=== PATIENT | female | born 1980 | race Caucasian/White ===

== ENCOUNTER 2019-01-31 20:50 | Inpatient (IN) | payer OTHER ==
[~2019-01-31] VITALS: Ht 185.4 cm; Wt 139.7 kg
[~2019-01-31 20:50] MED LIST: LOV40I SUBQ; WARF10TA28 PO; [UNRECOGNIZED DRUG - REMARK] PO
[2019-01-31 21:05] VITALS: BP 124/65
--- NOTE | 2019-01-31 21:07 | NUR ---
TO LOBBY A/W BED AMBULATORY
--- NOTE | 2019-01-31 21:36 | NUR ---
PT TAKEN TO BED 12.
--- NOTE | 2019-01-31 21:45 | NUR ---
38 YO F BIB SELF PRESENTS TO ED C/O 03/24 BURNING LOWER BACK PAIN. PT STATES SHE HAD GASTRIC BYPASS SURGERY ON 01/18/19 AT [facility]. PT STATES SHE HAS HAD INTERMITTENT FEVERS AND IS C/O LOWER BACK PAIN X 2 DAYS WITH INTERMITTENT VOMITING. -- PT AWAKE, ALERT, CALM, COOPERATIVE. ANSWERS QUESTIONS APPROPRIATELY. BEHAVIOR APPROPRIATE. -- SKIN PINK, WARM, DRY. BREATHING EVEN, UNLABORED. PMH-- PULMONARY EMBOLISM, 2011 RX-- ELIQUIS 5 MG BID
--- NOTE | 2019-01-31 21:57 | NUR ---
DR. WU EVALUATING AT BEDSIDE.
[2019-01-31] MEDS ORDERED: NACL 0.9% 1,000 ML IV ONE ×2 (22:02→23:35)
[2019-01-31] MEDS ORDERED: ONDANSETRON 4 MG/2 ML VIAL IVP ONE (22:05)
[2019-01-31] MEDS ORDERED: MORPHINE SULFATE 4 MG/ML SYR IVP ONE (22:05)
[2019-01-31 22:29] LABS: BASOPHILS % (AUTO) 0.2 % (0.0-2.0); EOSINOPHILS # (AUTO) 0.1 K/uL (0-0.4); EOSINOPHILS % (AUTO) 0.7 % (0.0-4.0); HEMATOCRIT 33.2 % (36-48); HEMOGLOBIN 10.8 g/dL (12.0-16.0); LYMPHOCYTES # (AUTO) 1.6 K/uL (2.5-16.5); MEAN CORPUSCULAR HEMOGLOBIN 29 pg (27-31); MEAN CORPUSCULAR HGB CONC 33 g/dL (33-37); MEAN CORPUSCULAR VOLUME 88.7 fL (80-94); MONOCYTES # (AUTO) 1.5 K/uL (0.8-1.0); MONOCYTES % (AUTO) 7.4 % (1.7-9.3); NEUTROPHILS # (AUTO) 17.7 K/uL (1.8-7.7); NEUTROPHILS % (AUTO) 84.2 % (42.2-75.2); PLATELET COUNT (AUTO) 430 K/uL (140-450); RED BLOOD CELL COUNT(AUTO) 3.74 MIL/uL (4.20-5.40); RED CELL DISTRIBUTION WIDTH 14.1 % (11.6-13.7)
[2019-01-31 22:38] LABS: LYMPHOCYTES % (AUTO) 7.5 % (20.5-51.1)
[2019-01-31 22:39] LABS: ANION GAP 19.2 (8-16); CARBON DIOXIDE 22.3 mmol/L (21-32); CREATININE 0.8 mg/dL (0.6-1.3); POTASSIUM 3.5 mmol/L (3.5-5.1)
[2019-01-31 22:45] LABS: ALBUMIN 2.7 g/dL (3.4-5.0); TOTAL BILIRUBIN 0.7 mg/dL (0.0-1.0)
[2019-01-31 23:08] LABS: APPEARANCE,URINE CLEAR (CLEAR); BILIRUBIN,URINE 2+ (NEGATIVE); BLOOD, URINE 2+ (NEGATIVE); COLOR,URINE YELLOW (YELLOW); LEUKOCYTE ESTERASE ,URINE NEGATIVE (NEGATIVE); NITRITE, URINE NEGATIVE (NEGATIVE); UGLUCOSE NEGATIVE (NEGATIVE)
--- NOTE | 2019-01-31 23:08 | NUR ---
PT TAKEN TO CT
--- NOTE | 2019-01-31 23:21 | NUR ---
PT RETURN FROM CT
[2019-01-31 23:27] LABS: WBC,URINE 0-5 /HPF (0-5)
--- NOTE | 2019-02-01 00:33 | NUR ---
Ultrasound at bedside.
--- NOTE | 2019-02-01 01:07 | NUR ---
PT IS RESTING COMFORTABLY IN BED. VSS. SKIN PINK, WARM, DRY. BREATHING EVEN, UNLABORED. DENIES PAIN/DISCOMFORT AT THIS TIME.
[2019-02-01] MEDS ORDERED: APIX5TAB PO (01:53)
[2019-02-01] MEDS ORDERED: ONDANSETRON 4 MG/2 ML VIAL IVP ONE (02:05)
[2019-02-01] MEDS ORDERED: LEVOFLOXACIN 750 MG/D5W PREMIX 150 ML IV ONE (02:05)
[2019-02-01] MEDS ORDERED: metroNIDAZOLE 500 MG/NS PREMIX 100 ML IV ONE (02:05)
[2019-02-01] MEDS ORDERED: MORPHINE SULFATE 4 MG/ML SYR IVP ONE (02:05)
--- NOTE | 2019-02-01 02:05 | NUR ---
PT C/O PAIN COMING BACK. DR. WU MADE AWARE.
--- NOTE | 2019-02-01 03:32 | NUR ---
PT IS RESTING COMFORTABLY IN BED. VSS. SKIN PINK, WARM, DRY. BREATHING EVEN, UNLABORED. DENIES PAIN/DISCOMFORT AT THIS TIME.
[2019-02-01 04:00] VITALS: BP 122/39
--- NOTE | 2019-02-01 04:00 | NUR ---
RECEIVED FROM ER VIA DAMARIS, PT AWAKE, ALERT AND ORIENTED X 4. PT BEDREST, BUT ABLE TO AMBULATE. W/ L AC G 20, PATENT AND INTACT. PT'S POC DISCUSSED. ORIENTED TO UNIT. CALL LIGHTS W/IN REACH.
--- NOTE | 2019-02-01 04:02 | NUR ---
PT TRANSFERED TO FLOOR WITH LEVAQUIN INFUSING.
--- NOTE | 2019-02-01 04:02 | NUR ---
Jaison rubin in [facility] - 02/01/19 at 0421 by [facility] PT TRANSFERED TO FLOOR WITH ZOSYN INFUSING.
--- NOTE | 2019-02-01 04:04 | NUR ---
Patient will be admitted to care of Dr. Fatima. Admited to MS. Will go to room 105A. Belongings list completed. Report to FRANK Rodriguez.
[2019-02-01] MEDS ORDERED: ACETAMINOPHEN 325 MG TAB PO PRN (04:35)
--- NOTE | 2019-02-01 04:45 | NUR ---
CALLED IN FOR ORDERS, CARRIED ORDERS. PT SAID THAT SHE IS ALLERGIC TO PENICILLIN.PT SAID SHE HAD HIVES THAT WAS WHEN SHE WAS [address] NOBLES ORDERED ZOSYN 3.375 IVF MG Q 6. WILL ENDORSE TO NEXT SHIFT IF TO CONTINUE W/ THIS ORDER ZOSYN A PENICILLIN DERIVATIVE.
[2019-02-01] MEDS ORDERED: ONDANSETRON 4 MG/2 ML VIAL IVP PRN (06:00)
[2019-02-01] MEDS: DEXT 5% / NACL 0.45% 1,000 ML IV SCH ×2 (06:45→21:15)
--- NOTE | 2019-02-01 07:30 | NUR ---
RECEIVED ENDORSEMENT FROM REAL ESTATE ASSET MANAGER NURSE. PATIENT IS AAOX4, LIBERIAN SPEAKING. RESPIRATIONS ARE EVEN AND UNLABORED ON ROOM AIR. PATIENT DENIES ANY PAIN AT THIS TIME. LEFT AC 20 G IV INTACT, PATENT, AND INFUSING IVF. PLAN OF CARE WAS REVIEWED WITH PATIENT. PATIENT VERBALIZED UNDERSTANDING. SAFETY MEASURES IN PLACE, CALL LIGHT WITHIN REACH.
[2019-02-01 08:00] VITALS: BP 122/58
--- NOTE | 2019-02-01 08:08 | NUR ---
PATIENT HAS BEEN SCREENED AND CATEGORIZED HIGH NUTRITION RISK. PATIENT WILL BE SEEN WITHIN 1-2 DAYS OF ADMISSION. 02/01/19-02/02/[address]
--- NOTE | 2019-02-01 09:40 | NUR ---
PATIENT IS RESTING IN BED. DENIES ANY PAIN, NO OTHER NEEDS AT THIS TIME.
[2019-02-01 10:18] LABS: ALBUMIN 2.2 g/dL (3.4-5.0); ANION GAP 15.7 (8-16); CARBON DIOXIDE 22.8 mmol/L (21-32); CREATININE 0.6 mg/dL (0.6-1.3); POTASSIUM 3.5 mmol/L (3.5-5.1); TOTAL BILIRUBIN 0.8 mg/dL (0.0-1.0)
--- NOTE | 2019-02-01 11:42 | NUR ---
PATIENT IS RESTING IN BED. FAMILY IS PRESENT AT BEDSIDE. DENIES PAIN AT THIS TIME. NO OTHER NEEDS AT THIS TIME.
--- NOTE | 2019-02-01 12:44 | NUR ---
02/01/19 RD INITIAL ASSESSMENT COMPLETED PLEASE REFER TO NUTRITION ASSESSMENT UNDER CARE ACTIVITY FOR ESTIMATED NUTRITIONAL NEEDS. 1. CONTINUE NPO MEDICALLY NECESSARY 2. RECOMMEND FULL LIQUID DIET WHEN PT IS MEDICALLY STABLE TO RECEIVE NUTRITION 3. RECOMMEND IRON, VITAMIN B 12, VITAMIN D, CALCIUM, AND MVI FOR POST-BARIATRIC BYPASS 4. EDUCATION ON BARIATRIC AND LOW-FAT DIET WERE PROVIDED 5. RD TO FOLLOW-UP 3-5 DAYS, MODERATE RISK SHAGGY ORTIZ RD
--- NOTE | 2019-02-01 13:20 | NUR ---
PATIENT RESTING IN BED. DENIES ANY PAIN AT THIS TIME. NO OTHER NEEDS AT THIS TIME.
--- NOTE | 2019-02-01 13:33 | NUR ---
DC PLANNING Order for transfer to Bariatric center for Bariatric Cholecystectomy Morbid Obesity w Acute Cholecystitis, recommended by surgeon. Spoke w Dr Campbell in nsg station, [facility] Dr Carpenter has not examined pt yet but reviewed case w him & recommended transferring pt. Spoke w pt @ bedside, states had Gastric Bypass @ [facility] [address] Jacky Holbrook @ [facility] ph [phone]. Is agreeable w transfer but would prefer to dc home & f/u outpt if Surgeon says it's ok. States has f/u appt w Dr Holbrook tomorrow morning. Called & Spoke w Don, Front Counter Attendant @ [facility] ph [phone], [facility] would need to get accepting MD first. Called & spoke w Krysten Nicole @ [facility] informed of order & reason for transfer. Krysten placed me on hold discussed w Surgeon & want University Surgeon to examine pt first then he can call & speak w their surgeon if still wants transfer. Can call same#. Addendum: 02/01/19 at 1350 by Monica Hughes CM Called Dr Carpenter's office & left [facility] to call me to discuss transfer. Addendum: 02/01/19 at 1636 by Monica Hughes CM Received call from Dr Carpenter around 1430 & updated that Surgeon @ [facility] will consider transfer only after he examines pt & discuss w him. Did not want ph# states will be here in about an hour & will examine pt & call. Dr Carpenter still not in hospital. Called & spoke bronson Calderon @ [facility], ph [phone], fax [phone],& informed of order. Faxed pt info, states will review & will call nsg station directly & [facility] if transfer auth'd. Informed still waiting for accepting MD. Called & spoke bronson Fajardo @ [facility] & informed CM leaving for the day, left direct # for Dr Carpenter & nsg station. Informed still waiting for Dr Carpenter. Called & updated charge nurse, Beverly, gave ph # for [facility]'s for Dr Carpenter to call.
--- NOTE | 2019-02-01 15:30 | NUR ---
PATIENT RESTING IN BED. DENIES ANY PAIN. NO OTHER NEEDS AT THIS TIME.
[2019-02-01 16:00] VITALS: BP 129/64
--- NOTE | 2019-02-01 16:55 | NUR ---
RECEIVED CALL FROM BARRERA FROM [facility]. INSURANCE WANTS UPDATE ON WHETHER PATIENT WILL BE TRANSFERRED OR NOT. PLEASE CALL .
--- NOTE | 2019-02-01 17:12 | NUR ---
[facility] JOSE DOWELL CALLED TO SEE IF DR BOTELLO HAS EVALUATED THE PATIENT, WILL INFORM DR FIELD TO CALL [facility] WHEN PT IS EVALUATED .
--- NOTE | 2019-02-01 17:32 | NUR ---
ASSISTED PATIENT TO THE BATHROOM. PATIENT ABLE TO AMBULATE WITH A STEADY GAIT. DENIES PAIN. NO OTHER NEEDS AT THIS TIME.
--- NOTE | 2019-02-01 19:08 | NUR ---
SPOKE TO JOSE A FROM [facility]. HIDA SCAN TO BE DONE FIRST THING IN THE MORNING. DR. BOTELLO IS AWARE. PATIENT TO BE NPO AFTER MIDNIGHT AND NO PAIN MEDICATIONS AFTER 0400.
--- NOTE | 2019-02-01 19:20 | NUR ---
RECEIVED FROM AM RN IN BED AWAKE AND ALERT. ABLE TO VERBALIZE NEEDS WELL IN [place]. CARE PLANS FOR THE NIGHT DISCUSSED WITH HER AND CALL LIGHT USE RE-ORIENTED. NO PAIN COMPLAINTS AT THIS TIME. IVF SITE INTACT AND NO INFILTRATION. REMINDED NPO ORDER RT WITH HIDA SCAN PROCEDURE ORDERED. "OK"
--- NOTE | 2019-02-01 19:22 | NUR ---
ENDORSED TO BRANCH SERVICE ASSOCIATE NURSE CHUCK FOR CONTINUITY OF CARE. PATIENT IS STABLE AT THIS TIME.
--- NOTE | 2019-02-01 22:53 | NUR ---
PT. SEEN BY MD BOTELLO AND STATED OK TO GIVE FULL LIQUID AND NPO MIDNIGHT FOR HIDA SCAN TOMORROW. PT. AWARE. PROVIDED WITH WATER REQUESTED. REFUSED JUICE. NO PAIN COMPLAINTS DONE.
--- NOTE | 2019-02-01 23:30 | NUR ---
SLEEPING. NO RESTLESSNESS. CLL LIGHT WITH IN REACH.
[2019-02-01 23:50] VITALS: BP 133/59
[2019-02-02] MEDS: DEXT 5% / NACL 0.45% 1,000 ML IV SCH ×2 (00:59→21:40)
--- NOTE | 2019-02-02 01:09 | NUR ---
NEW IVF BAG ADMINISTERED. PT. AWAKE AND ABLE TO COMMUNICATE WELL WITH ME. NO COMPLAINTS DONE. REMINDED OF NPO M . N . STATUS AGAIN. "OK" IVF SITE INTACT AND NO INFILTRATION.
--- NOTE | 2019-02-02 02:45 | NUR ---
PT. SLEEPING. NO RESTLESSNESS. CALL LIGHT WITH IN REACH.
--- NOTE | 2019-02-02 04:00 | NUR ---
NO COMPLAINTS. SLEEPING WELL THIS SHIFT. IVF INFUSING WELL. CALL LIGHT WITH IN REACH.
[2019-02-02 05:57] LABS: ALBUMIN 2.2 g/dL (3.4-5.0); ANION GAP 13.9 (8-16); CARBON DIOXIDE 25.7 mmol/L (21-32); CREATININE 0.6 mg/dL (0.6-1.3); POTASSIUM 3.6 mmol/L (3.5-5.1); TOTAL BILIRUBIN 0.5 mg/dL (0.0-1.0)
--- NOTE | 2019-02-02 06:39 | NUR ---
PT. AWAKE AND WENT RESTROOM BY HERSELF. INDEPENDENT. ABLE TO AMBULATE WELL. NPO SINCE MIDNIGHT.
[2019-02-02 06:45] LABS: BASOPHILS # (AUTO) 0.1 K/uL (0.00-0.22); BASOPHILS % (AUTO) 0.7 % (0.0-2.0); EOSINOPHILS # (AUTO) 0.4 K/uL (0-0.4); EOSINOPHILS % (AUTO) 2.4 % (0.0-4.0); HEMOGLOBIN 10.3 g/dL (12.0-16.0); LYMPHOCYTES # (AUTO) 2.1 K/uL (2.5-16.5); LYMPHOCYTES % (AUTO) 14.4 % (20.5-51.1); MEAN CORPUSCULAR HEMOGLOBIN 29 pg (27-31); MEAN CORPUSCULAR HGB CONC 32 g/dL (33-37); MONOCYTES # (AUTO) 1.2 K/uL (0.8-1.0); MONOCYTES % (AUTO) 8.2 % (1.7-9.3); NEUTROPHILS % (AUTO) 74.3 % (42.2-75.2); PLATELET COUNT (AUTO) 440 K/uL (140-450); RED CELL DISTRIBUTION WIDTH 13.8 % (11.6-13.7); WHITE BLOOD COUNT (AUTO) 14.8 K/uL (4.8-10.8)
--- NOTE | 2019-02-02 07:24 | NUR ---
ENDORSED TO THE AM RN FOR CONTINUITY OF CARE. AWAKE AND ALERT.
--- NOTE | 2019-02-02 07:26 | NUR ---
RECEIVED BEDSIDE REPORT FROM BOX FOLDING MACHINE OPERATOR RN FOR CONTINUITY OF CARE. PT IN STABLE CONDITION. DENIES PAIN AND DISCOMFORT. NO S/S DISTRESS. RESPIRATIONS EVEN AND UNLABORED. HEART RHYTHM REGULAR. HYPOACTIVE BS. ABD INCISIONS W/ ALYSSA FROM PREVIOUS LAPAROSCOPIC GASTRIC BYPASS. SKIN OTHERWISE INTACT. PT IS AMBULATORY WITHOUT ASSIST PER BOX FOLDING MACHINE OPERATOR RN. IV SITE PATENT AND ASYMPTOMATIC, INFUSING IVF PER MD ORDERS. ALL SAFETY PRECAUTIONS IN PLACE, WILL CONTINUE TO MONITOR. Addendum: 02/02/19 at 1029 by Monica Bardales Meng RN AOX4, COOPERATIVE, INTERACTING APPROPRIATELY.
[2019-02-02 08:00] VITALS: BP 123/60
[2019-02-02] MEDS: ENOXAPARIN 40 MG/0.4 ML SYR SUBQ SCH (08:20)
--- NOTE | 2019-02-02 08:23 | NUR ---
ADMINISTERED SCHEDULED MEDICATION. PT INQUIRING ABOUT WHEN HIDA TO BE DONE. PER RADIOLOGY, WILL BE AROUND 0930 TODAY. INFORMED PATIENT OF THIS, SHE VERBALIZED UNDERSTANDING.
--- NOTE | 2019-02-02 09:48 | NUR ---
Tagstr TOOK PATIENT FOR HIDA SCAN.
[2019-02-02] MEDS: MORPHINE SULFATE 2 MG/ML SYR IVP PRN ×2 (11:05→21:21)
--- NOTE | 2019-02-02 11:06 | NUR ---
ADMINISTERED WITH MORPHINE, WHICH MAKES PATIENT NAUSEOUS.
[2019-02-02 12:15] VITALS: BP 127/68
--- NOTE | 2019-02-02 12:15 | NUR ---
PATIENT BACK FORM HIDA SCAN Addendum: 02/02/19 at 1239 by Monica Bardales Meng, RN DENIES PAIN AND N/V
--- NOTE | 2019-02-02 13:36 | NUR ---
PT RESTING IN BED, NO C/O PAIN OR DISCOMFORT. WILL CONTINUE TO MONITOR.
--- NOTE | 2019-02-02 14:21 | NUR ---
PATIENT STATES SHE DOES NOT WANT SOLID FOODS AT THIS TIME. ORDERED TEA, JELLO, AND BROTH FROM [facility] PER PATIENT REQUEST FOR LUNCH TODAY.
--- NOTE | 2019-02-02 14:43 | NUR ---
PT STATES SHE WANTS TEA, BROTH, AND SUGAR-FREE JELLO FOR DINNER TONIGHT WELL ALL MEALS TOMORROW. I HAVE INFORMED [facility].
[2019-02-02 16:00] VITALS: BP 143/70
--- NOTE | 2019-02-02 16:35 | NUR ---
PT RESTING IN BED, NO COMPLAINTS AT THIS TIME. WILL CONTINUE TO MONITOR.
--- NOTE | 2019-02-02 19:12 | NUR ---
RECIEVED PT AAOX4,NID, WITH BEARABLE ABDL. PAIN AT THIS TIME ,V/S WNL, IV SITE INTACT AND PATENT ,AMBULATORY, PLAN OF CARE DISCUSSED AND VERBALIZES UNDERSTANDING,BED IN LOW POSITION, SIDERAILS UPX2 ,CALL LIGHT WITHIN REACH.
--- NOTE | 2019-02-02 20:00 | NUR ---
PT COMPLAINING OF PAIN , MORPHINE TIV GIVEN ORDERED. CALL LIGHT WITHIN REACH ,WILL CONTINUE TO MONITOR.
--- NOTE | 2019-02-02 21:00 | NUR ---
COMPLAINING OF UNABLE TO SLEEP ,REQUESTING FOR SLEEPING PILL. V/S WNL STABLE BP 110/70 NID,
--- NOTE | 2019-02-02 21:21 | NUR ---
REFERRED PT TO MD , RESTORIL GIVEN 15MG /CAP. P.O GIVEN PRN FOR INSOMIA T.O BY .,CALL LIGHT WITHIN REACH ,WILL CONTINUE TO FOLLOW UP.
[2019-02-02] MEDS ORDERED: TEMAZEPAM 15 MG CAP PO PRN (22:05)
--- NOTE | 2019-02-03 | NUR ---
MADE ROUNDS , V/S WNL, NO COMPLAIN OF PAIN AT THIS TIME. CALL LIGHT WITH IN REACH.
[2019-02-03 03:02] VITALS: BP 110/60
--- NOTE | 2019-02-03 04:00 | NUR ---
MADE ROUNDS , V/S WNL ,IVF INFUSING WELL, PT. HAS NO U.O FROM 1900 , LAST VOIDED 1630 YESTERDAY,WILL CONTINUE TO MONITOR. INCISSIONAL WOUNDS INTACT , CALL LIGHT WITHIN REACH.
--- NOTE | 2019-02-03 06:00 | NUR ---
PT. STILL HAVE NO U.O ,ENCOURAGE OFI , WILL CONTINUE TO MONITOR, NID ,CALL LIGHT WITHIN REACH.
[2019-02-03 06:59] LABS: BASOPHILS % (AUTO) 0.2 % (0.0-2.0); EOSINOPHILS # (AUTO) 0.2 K/uL (0-0.4); EOSINOPHILS % (AUTO) 1.6 % (0.0-4.0); HEMOGLOBIN 10.2 g/dL (12.0-16.0); LYMPHOCYTES % (AUTO) 14.5 % (20.5-51.1); MEAN CORPUSCULAR HEMOGLOBIN 29 pg (27-31); MEAN CORPUSCULAR HGB CONC 33 g/dL (33-37); MEAN CORPUSCULAR VOLUME 87.6 fL (80-94); MONOCYTES # (AUTO) 1.2 K/uL (0.8-1.0); MONOCYTES % (AUTO) 8.7 % (1.7-9.3); NEUTROPHILS # (AUTO) 10.1 K/uL (1.8-7.7); PLATELET COUNT (AUTO) 447 K/uL (140-450); RED BLOOD CELL COUNT(AUTO) 3.54 MIL/uL (4.20-5.40); RED CELL DISTRIBUTION WIDTH 14.1 % (11.6-13.7); WHITE BLOOD COUNT (AUTO) 13.5 K/uL (4.8-10.8)
--- NOTE | 2019-02-03 07:10 | NUR ---
PT. STILL NO U.O , NID , BP 120/62 ENDORSED TO AM SHIFT FOR CONTINUITY OF CARE
[2019-02-03 07:19] LABS: ALBUMIN 2.1 g/dL (3.4-5.0); ANION GAP 11.9 (8-16); CARBON DIOXIDE 30.3 mmol/L (21-32); CREATININE 0.7 mg/dL (0.6-1.3); POTASSIUM 4.2 mmol/L (3.5-5.1); TOTAL BILIRUBIN 0.3 mg/dL (0.0-1.0)
--- NOTE | 2019-02-03 07:30 | NUR ---
RECEIVED BEDSIDE REPORT FROM STUDIO PRODUCER RN FOR CONTINUITY OF CARE. PT IN STABLE CONDITION. AOX4, COOPERATIVE, INTERACTING APPROPRIATELY. NO C/O PAIN AND DISCOMFORT. NO S/S DISTRESS. RESPIRATIONS EVEN AND UNLABORED. HEART RHYTHM REGULAR. ACTIVE BS. ABD INCISIONS W/ ALYSSA FROM PREVIOUS LAPAROSCOPIC GASTRIC BYPASS. SKIN OTHERWISE INTACT. PT IS AMBULATORY WITHOUT ASSIST. IV SITE PATENT AND ASYMPTOMATIC, INFUSING IVF PER MD ORDERS. ALL SAFETY PRECAUTIONS IN PLACE, WILL CONTINUE TO MONITOR.
[2019-02-03 08:00] VITALS: BP 134/57
[2019-02-03] MEDS: ENOXAPARIN 40 MG/0.4 ML SYR SUBQ SCH (08:40)
--- NOTE | 2019-02-03 08:41 | NUR ---
ADMINISTERED SCHEDULED MEDICATIONS. ALL NEEDS MET AT THIS TIME. WILL CONTINUE TO MONITOR.
--- NOTE | 2019-02-03 08:48 | NUR ---
PATIENT VOIDED IN BATHROOM.
--- NOTE | 2019-02-03 11:01 | NUR ---
PT RESTING IN BED, NO S/S DISTRESS.
--- NOTE | 2019-02-03 13:30 | NUR ---
DISCHARGE PAPERWORK, INCLUDING INSTRUCTIONS TO F/U WITH PCP WITHIN ONE WEEK AND CONTINUE TO F/U WITH GI DOCTOR, GIVEN TO PATIENT. NEW PRESCRIPTION/MEDICATION TEACHING AND MEDICATION RECONCILIATION TEACHING GIVEN TO PATIENT. NEW RX FLAGYL AND LEVAQUIN WAS NOT INPUTTED INTO COMPUTER/DC PAPERWORK, ASKED IF PATIENT CAN STAY TO HAVE MEDS PRINTED ON D/C PAPERWORK. PATIENT STATES SHE DOES NOT WANT TO WAIT AND SHE HAS THE PHYSICAL PRESCRIPTION. WILL ENTER NEW MEDS IN AFTER D/C. PT VERBALIZED UNDERSTANDING OF ALL TEACHING. IV SITE REMOVED WITH MINIMAL BLOOD LOSS AND LUMEN COMPLETELY INTACT. ID BANDS REMOVED. ALL PERSONAL BELONGINGS ARE WITH PATIENT. PATIENT DISCHARGED TO HOME WITH FAMILY MEMBER VIA PRIVATE VEHICLE.
[2019-02-03] MEDS ORDERED: LEVO500T2 PO (13:54)
[2019-02-03] MEDS ORDERED: METR500T1 PO (13:54)
== END 2019-02-03 13:50 | disposition home or self-care (01) ==
LOC: MED 20:50 → MTU 02-01 03:31
PROVIDERS: ADMIT Internal Medicine; ATTEND Internal Medicine
DX: K80.00 Calculus of gallbladder with acute cholecystitis without obstruction (principal); E44.1 Mild protein-calorie malnutrition; E66.01 Morbid (severe) obesity due to excess calories; G89.29 Other chronic pain; M54.9 Dorsalgia, unspecified; Z68.41 Body mass index [BMI] 40.0-44.9, adult; Z98.84 Bariatric surgery status; Z88.1 Allergy status to other antibiotic agents; Z88.0 Allergy status to penicillin; Z86.711 Personal history of pulmonary embolism; Z79.899 Other long term (current) drug therapy
CPT/HCPCS: 36415; 76705; 78445; 80053; 81001; 83605; 83690; 85025; 87040; 87081; 87086; 96361; 96365; 96375; 96376; 99285; J1650; J1956; J2270; J2405; J3490; Q0092